=== PATIENT | female | born 1995 | race Caucasian/White ===

== ENCOUNTER 2017-09-17 09:52 | Emergency (ER) | payer OTHER ==
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
[2017-09-17] MEDS ORDERED: SKIN ADHESIVE (DERMABOND) 1 EACH TP ONE (11:33)
[2017-09-17] MEDS ORDERED: ACETAMINOPHEN 500 MG TAB PO ONE (11:50)
[2017-09-17 11:54] VITALS: BP 111/66
== END 2017-09-17 12:03 | disposition home or self-care (01) ==
LOC: EDUNIT#
PROC: 0HQ1XZZ Repair Face Skin, External Approach (ICD-10-PCS; principal; 2017-09-17)
DX: S06.9X9A Unspecified intracranial injury with loss of consciousness of unspecified duration, initial encounter (principal); S01.81XA Laceration without foreign body of other part of head, initial encounter; V18.4XXA Pedal cycle driver injured in noncollision transport accident in traffic accident, initial encounter; Y92.410 Unspecified street and highway as the place of occurrence of the external cause; Y99.8 Other external cause status; Y93.89 Activity, other specified